=== PATIENT | female | born 1945 | race Hispanic/Latino ===

== ENCOUNTER → 2019-11-29 | Outpatient (CLI) | payer MEDICARE ==
[~2019-11-29] MED LIST: ROPI1TAB13 PO; SITA1TAB2 PO; TRAM50TA4 PO
== END | disposition home or self-care (01) ==
LOC: RAH 07:31
PROVIDERS: ATTEND Orthopaedic Surgery
DX: M19.011 Primary osteoarthritis, right shoulder (principal); M75.102 Unspecified rotator cuff tear or rupture of left shoulder, not specified as traumatic
CPT/HCPCS: 73221

== ENCOUNTER 2020-04-24 17:44 | Inpatient (IN) | payer MEDICARE ==
[~2020-04-24] VITALS: Ht 152.4 cm; Wt 64.5 kg
[2020-04-24 18:36] LABS: BASOPHILS % (AUTO) 0.1 % (0.0-5.0); EOSINOPHILS % (AUTO) 0.3 % (0.0-8.0); HEMATOCRIT 37.3 % (36-48); LYMPHOCYTES % (AUTO) 9.4 % (21.0-51.0); MEAN CORPUSCULAR HEMOGLOBIN 30.7 pg (27.0-33.0); MEAN CORPUSCULAR HGB CONC 33.5 g/dL (32.0-36.0); MEAN CORPUSCULAR VOLUME 91.6 fL (79-99); MONOCYTES % (AUTO) 4.6 % (3.0-13.0); NEUTROPHILS % (AUTO) 85.3 % (40.0-77.0); PLATELET COUNT (AUTO) 314 K/uL (130-400); RED BLOOD CELL COUNT(AUTO) 4.07 MIL/uL (4.00-5.50); RED CELL DISTRIBUTION WIDTH 11.9 % (11.0-15.5); WHITE BLOOD COUNT (AUTO) 7.5 K/uL (4.8-10.8)
[2020-04-24 19:00] LABS: CRP QUANTITATIVE 202.1 mg/L (0.00-9.0)
[2020-04-24] MEDS ORDERED: DEXAMETHASONE SOD PHOSPHATE 10MG/ML 1ML VIAL ONE (19:51)
[2020-04-24] MEDS ORDERED: CEFTRIAXONE 1G VIAL ONE (19:51)
[2020-04-24] MEDS ORDERED: AZITHROMYCIN 250 MG TABLET PO ONE (19:52)
[2020-04-24 19:53] LABS: ABG BASE EXCESS 0.7 mmol/L (-2.0-3.0); ABG HCO3 23.8 mmol/L (21.0-28.0); ABG OXYGEN SATURATION 93.8 % (95.0-99.0); ABG PCO2 34 mmHg (32-45)
[2020-04-24 20:11] LABS: CREATININE 0.5 mg/dL (0.5-1.5); POTASSIUM 5.1 mmol/L (3.5-5.1)
[2020-04-24 20:16] LABS: ALBUMIN 2.6 g/dL (3.5-5.0); BILIRUBIN,TOTAL 0.5 mg/dL (0.2-1.0); TOTAL PROTEIN, SERUM 7.7 g/dL (6.0-8.3)
[2020-04-24] MEDS ORDERED: IOHEXOL 350 MG/ML 100ML INFUS..BTL IV ONE (20:23)
[2020-04-24] MEDS ORDERED: MAG/ALUM/SIMETH 30 ML UDCUP PO PRN (20:45)
[2020-04-24] MEDS ORDERED: GUAIFENESIN-DM 200/20 MG 10 ML PO PRN (20:45)
[2020-04-24] MEDS ORDERED: DIPHENHYDRAMINE HCL 25 MG CAPSULE PO PRN (20:45)
[2020-04-24] MEDS ORDERED: DiphenhydrAMINE HCL 50 MG/ML VIAL IV PRN (20:45)
[2020-04-24] MEDS ORDERED: ONDANSETRON 4MG INJ IV PRN (20:45)
[2020-04-24] MEDS ORDERED: NITROGLYCERIN 0.4 MG SL TAB SL PRN (20:45)
[2020-04-24] MEDS ORDERED: LACTULOSE 20 GM/30 ML UDCUP PO PRN (20:45)
[2020-04-24] MEDS ORDERED: ACETAMINOPHEN 325 MG TAB PO PRN ×2 (20:45)
[2020-04-24 20:49] LABS: HEMOGLOBIN A1C 12.7 % (4.0-6.0)
[2020-04-24] MEDS: ACETYLCYSTEINE 600 MG CAPSULE PO SCH (21:00)
[2020-04-24] MEDS ORDERED: CEFTRIAXONE 1G VIAL IVP SCH (21:00)
[2020-04-24] MEDS ORDERED: ERGOCALCIFEROL (VITAMIN D2) 50,000 UNIT CAPSULE PO ONE (21:00)
[2020-04-24] MEDS: FAMOTIDINE 20MG TAB PO SCH (21:00)
[2020-04-24] MEDS ORDERED: ERGOCALCIFEROL (VITAMIN D2) 50,000 UNIT CAPSULE ONE (22:04)
[2020-04-24] MEDS ORDERED: ASPIRIN 325 MG TABLET ONE (22:05)
[2020-04-24] MEDS ORDERED: FAMOTIDINE 20MG TAB ONE (22:05)
[2020-04-24] MEDS ORDERED: ACETYLCYSTEINE 600 MG CAPSULE ONE (22:05)
[2020-04-24] MEDS ORDERED: 0.9%NACL 50ML 50 ML IV ONE (23:31)
[2020-04-25] MEDS: INSULIN GLARGINE 100 UNITS/ML 10 ML VIAL SQ SCH ×2 (00:45→21:00)
[2020-04-25] MEDS ORDERED: GLUCAGON 1MG KIT 1 MG ML IM PRN (00:45)
[2020-04-25] MEDS ORDERED: DEXTROSE 50%-WATER 50 ML DISP.SYRIN IV PRN (00:45)
[2020-04-25 05:41] LABS: BASOPHILS % (AUTO) 0.2 % (0.0-5.0); HEMATOCRIT 36.5 % (36-48); MEAN CORPUSCULAR HEMOGLOBIN 31.5 pg (27.0-33.0); MEAN CORPUSCULAR HGB CONC 34.5 g/dL (32.0-36.0); MEAN CORPUSCULAR VOLUME 91.3 fL (79-99); MONOCYTES % (AUTO) 0.9 % (3.0-13.0); NEUTROPHILS % (AUTO) 88.7 % (40.0-77.0); PLATELET COUNT (AUTO) 324 K/uL (130-400); WHITE BLOOD COUNT (AUTO) 4.3 K/uL (4.8-10.8)
[2020-04-25] MEDS: INSULIN HUMULIN R 100 UNIT/ML 3ML SQ SCH ×4 (07:30→21:00)
[2020-04-25] MEDS ORDERED: ASCORBIC ACID 500 MG TAB ONE (07:39)
[2020-04-25] MEDS ORDERED: FAMOTIDINE 20MG TAB ONE ×2 (07:39→21:03)
[2020-04-25] MEDS ORDERED: ZINC SULFATE 220 CAPSULE ONE (07:40)
[2020-04-25] MEDS ORDERED: ACETYLCYSTEINE 600 MG CAPSULE ONE ×2 (07:40→21:03)
[2020-04-25] MEDS ORDERED: ENOXAPARIN SODIUM 40 MG/0.4 ML SYRINGE SQ ONE (07:40)
[2020-04-25] MEDS ORDERED: CEFTRIAXONE 1G VIAL ONE ×2 (07:41→21:04)
[2020-04-25] MEDS ORDERED: INSULIN HUMULIN R 100 UNIT/ML 3ML ONE ×4 (07:59→21:04)
[2020-04-25 08:35] LABS: ALBUMIN 2.2 g/dL (3.5-5.0); BILIRUBIN,TOTAL 0.3 mg/dL (0.2-1.0); CREATININE 0.6 mg/dL (0.5-1.5); POTASSIUM 4.3 mmol/L (3.5-5.1)
[2020-04-25 08:43] LABS: CRP QUANTITATIVE 175.8 mg/L (0.00-9.0)
[2020-04-25] MEDS: ASCORBIC ACID 500 MG TAB PO SCH (09:00)
[2020-04-25] MEDS: ZINC SULFATE 220 CAPSULE PO SCH (09:00)
[2020-04-25] MEDS: ACETYLCYSTEINE 600 MG CAPSULE PO SCH ×2 (09:00→21:00)
[2020-04-25] MEDS ORDERED: ENOXAPARIN SODIUM 40 MG/0.4 ML SYRINGE SQ SCH (09:00)
[2020-04-25] MEDS: CEFTRIAXONE 1G VIAL IVP SCH ×2 (09:00→21:00)
[2020-04-25] MEDS: FAMOTIDINE 20MG TAB PO SCH ×2 (09:00→21:00)
[2020-04-25 16:32] LABS: APPEARANCE,URINE Clear (CLEAR); BILIRUBIN,URINE Negative (NEGATIVE); COLOR,URINE Yellow (YELLOW); GLUCOSE, URINE (UA) >=1000 mg/dL (NEGATIVE); KETONES,URINE 15 mg/dL (NEGATIVE); LEUKOCYTE ESTERASE ,URINE Negative (NEGATIVE); NITRATE,URINE Negative (NEGATIVE); OCCULT BLOOD,URINE Negative (NEGATIVE); PH,URINE 6.5 (5.0-8.0); PROTEIN,URINE Negative (NEGATIVE)
[2020-04-25 16:47] LABS: BACTERIA,URINE Rare /HPF (None Seen); RBC,URINE 0-1 /HPF (0-1); SQUAMOUS EPITHELIAL CELL,UR Few /HPF (0-2); WBC,URINE 0-1 /HPF (0-1)
[2020-04-25] MEDS ORDERED: PHARMACY COMMUNICATION***REMDESIVIR ORDER MISC SCH (17:00)
[2020-04-25] MEDS ORDERED: DEXAMETHASONE SOD PHOSPHATE 4 MG/ML 1ML VIAL IVP SCH (18:00)
[2020-04-25] MEDS: DEXAMETHASONE SOD PHOSPHATE 4 MG/ML 1ML VIAL IVP SCH (18:00)
[2020-04-25] MEDS ORDERED: DEXAMETHASONE SOD PHOSPHATE 4 MG/ML 1ML VIAL ONE (18:14)
[2020-04-26 05:30] VITALS: BP 136/72
[2020-04-26 06:30] LABS: BASOPHILS % (AUTO) 0.1 % (0.0-5.0); HEMATOCRIT 33.5 % (36-48); LYMPHOCYTES % (AUTO) 9.4 % (21.0-51.0); MEAN CORPUSCULAR HEMOGLOBIN 30.8 pg (27.0-33.0); MEAN CORPUSCULAR HGB CONC 33.7 g/dL (32.0-36.0); MEAN CORPUSCULAR VOLUME 91.3 fL (79-99); MONOCYTES % (AUTO) 2.4 % (3.0-13.0); NEUTROPHILS % (AUTO) 87.7 % (40.0-77.0); PLATELET COUNT (AUTO) 370 K/uL (130-400); RED BLOOD CELL COUNT(AUTO) 3.67 MIL/uL (4.00-5.50); RED CELL DISTRIBUTION WIDTH 12.2 % (11.0-15.5); WHITE BLOOD COUNT (AUTO) 10.6 K/uL (4.8-10.8)
[2020-04-26] MEDS: INSULIN HUMULIN R 100 UNIT/ML 3ML SQ SCH ×4 (06:40→19:58)
[2020-04-26 06:45] LABS: ALBUMIN 2.3 g/dL (3.5-5.0); BILIRUBIN,TOTAL 0.3 mg/dL (0.2-1.0); CREATININE 0.5 mg/dL (0.5-1.5); CRP QUANTITATIVE 69.6 mg/L (0.00-9.0); POTASSIUM 4.6 mmol/L (3.5-5.1); TOTAL PROTEIN, SERUM 6.6 g/dL (6.0-8.3)
[2020-04-26] MEDS: INSULIN LISPRO 100 UNIT/ML 3ML SQ SCH ×3 (06:49→17:41)
[2020-04-26 08:00] VITALS: BP 125/54
[2020-04-26] MEDS: CEFTRIAXONE 1G VIAL IVP SCH ×2 (08:54→19:42)
[2020-04-26] MEDS: FAMOTIDINE 20MG TAB PO SCH ×2 (08:56→19:41)
[2020-04-26] MEDS: ASCORBIC ACID 500 MG TAB PO SCH (08:56)
[2020-04-26] MEDS: ACETYLCYSTEINE 600 MG CAPSULE PO SCH (08:56)
[2020-04-26] MEDS: ZINC SULFATE 220 CAPSULE PO SCH (08:57)
[2020-04-26] MEDS: ENOXAPARIN SODIUM 40 MG/0.4 ML SYRINGE SQ SCH ×2 (08:57→19:42)
[2020-04-26 12:00] VITALS: BP 155/67
[2020-04-26] MEDS ORDERED: PHARMACY COMMUNICATION MISC SCH (16:30)
[2020-04-26] MEDS ORDERED: COMPOUND IV REFRIGERATED 1 EACH IVSOLN MISC PRN (17:00)
[2020-04-26] MEDS: DEXAMETHASONE SOD PHOSPHATE 4 MG/ML 1ML VIAL IVP SCH (17:45)
[2020-04-26 17:59] VITALS: BP 142/48
[2020-04-26] MEDS ORDERED: REMDESIVIR (EUA) 520 200 MG in 0.9% NACL 250ML 250 ML IV SCH (18:00)
[2020-04-26 19:00] VITALS: BP 122/76
[2020-04-26] MEDS: INSULIN GLARGINE 100 UNITS/ML 10 ML VIAL SQ SCH (19:46)
[2020-04-27] VITALS: BP_SYST 119; BP_SYST 136; BP_DIAS 70; BP_DIAS 76
[2020-04-27 04:00] VITALS: BP 143/71
[2020-04-27] MEDS: REMDESIVIR LABS MISC SCH (06:00)
[2020-04-27 06:01] LABS: BASOPHILS % (AUTO) 0.1 % (0.0-5.0); HEMATOCRIT 33.7 % (36-48); MEAN CORPUSCULAR HEMOGLOBIN 30.1 pg (27.0-33.0); MEAN CORPUSCULAR HGB CONC 32.9 g/dL (32.0-36.0); MEAN CORPUSCULAR VOLUME 91.3 fL (79-99); MONOCYTES % (AUTO) 2.4 % (3.0-13.0); PLATELET COUNT (AUTO) 414 K/uL (130-400); RED BLOOD CELL COUNT(AUTO) 3.69 MIL/uL (4.00-5.50); WHITE BLOOD COUNT (AUTO) 9.5 K/uL (4.8-10.8)
[2020-04-27 06:10] LABS: ALBUMIN 2.3 g/dL (3.5-5.0); BILIRUBIN,TOTAL 0.2 mg/dL (0.2-1.0); CREATININE 0.4 mg/dL (0.5-1.5); POTASSIUM 3.9 mmol/L (3.5-5.1); TOTAL PROTEIN, SERUM 6.6 g/dL (6.0-8.3)
[2020-04-27] MEDS: INSULIN LISPRO 100 UNIT/ML 3ML SQ SCH ×3 (06:32→16:53)
[2020-04-27] MEDS: INSULIN HUMULIN R 100 UNIT/ML 3ML SQ SCH ×4 (06:33→20:41)
[2020-04-27] MEDS: CEFTRIAXONE 1G VIAL IVP SCH ×2 (08:31→20:40)
[2020-04-27] MEDS: ZINC SULFATE 220 CAPSULE PO SCH (08:31)
[2020-04-27] MEDS: FAMOTIDINE 20MG TAB PO SCH ×2 (08:31→20:39)
[2020-04-27] MEDS: ENOXAPARIN SODIUM 40 MG/0.4 ML SYRINGE SQ SCH ×2 (08:31→20:42)
[2020-04-27] MEDS: ASCORBIC ACID 500 MG TAB PO SCH (08:31)
[2020-04-27 09:12] VITALS: BP 137/48
[2020-04-27 12:00] VITALS: BP 133/49
[2020-04-27] MEDS: REMDESIVIR (EUA) 520 100 MG in 0.9% NACL 250ML 250 ML IV SCH (17:06)
[2020-04-27 17:18] VITALS: BP 159/65
[2020-04-27 19:00] VITALS: BP 125/58
[2020-04-27] MEDS: INSULIN GLARGINE 100 UNITS/ML 10 ML VIAL SQ SCH (20:41)
[2020-04-28] VITALS: BP 127/54
[2020-04-28 04:00] VITALS: BP 146/76
[2020-04-28 04:16] LABS: HEMATOCRIT 34.6 % (36-48); LYMPHOCYTES % (AUTO) 27.5 % (21.0-51.0); MEAN CORPUSCULAR HEMOGLOBIN 30.5 pg (27.0-33.0); MEAN CORPUSCULAR HGB CONC 33.2 g/dL (32.0-36.0); MEAN CORPUSCULAR VOLUME 91.8 fL (79-99); MONOCYTES % (AUTO) 8.5 % (3.0-13.0); NEUTROPHILS % (AUTO) 63.6 % (40.0-77.0); PLATELET COUNT (AUTO) 463 K/uL (130-400); RED BLOOD CELL COUNT(AUTO) 3.77 MIL/uL (4.00-5.50); RED CELL DISTRIBUTION WIDTH 12.2 % (11.0-15.5); WHITE BLOOD COUNT (AUTO) 7.8 K/uL (4.8-10.8)
[2020-04-28 04:34] LABS: CREATININE 0.5 mg/dL (0.5-1.5); CRP QUANTITATIVE 22.3 mg/L (0.00-9.0); POTASSIUM 4.8 mmol/L (3.5-5.1)
[2020-04-28] MEDS: REMDESIVIR LABS MISC SCH (06:00)
[2020-04-28] MEDS: INSULIN LISPRO 100 UNIT/ML 3ML SQ SCH ×3 (06:59→17:08)
[2020-04-28] MEDS: INSULIN HUMULIN R 100 UNIT/ML 3ML SQ SCH ×4 (07:06→20:53)
[2020-04-28] MEDS: CEFTRIAXONE 1G VIAL IVP SCH ×2 (08:22→20:51)
[2020-04-28 08:23] VITALS: BP 128/50
[2020-04-28] MEDS: FAMOTIDINE 20MG TAB PO SCH ×2 (08:23→20:50)
[2020-04-28] MEDS: ASCORBIC ACID 500 MG TAB PO SCH (08:23)
[2020-04-28] MEDS: ZINC SULFATE 220 CAPSULE PO SCH (08:23)
[2020-04-28] MEDS: DEXAMETHASONE 4 MG TAB PO SCH (08:23)
[2020-04-28] MEDS: ENOXAPARIN SODIUM 40 MG/0.4 ML SYRINGE SQ SCH ×2 (08:25→20:51)
[2020-04-28 12:32] VITALS: BP 127/65
[2020-04-28] MEDS: REMDESIVIR (EUA) 520 100 MG in 0.9% NACL 250ML 250 ML IV SCH (17:31)
[2020-04-28 18:16] VITALS: BP 115/60
[2020-04-28] MEDS: INSULIN GLARGINE 100 UNITS/ML 10 ML VIAL SQ SCH (20:54)
[2020-04-29] VITALS: BP 133/52
[2020-04-29 04:00] VITALS: BP 114/69
[2020-04-29] MEDS: REMDESIVIR LABS MISC SCH (06:00)
[2020-04-29] MEDS: INSULIN HUMULIN R 100 UNIT/ML 3ML SQ SCH ×4 (06:18→20:55)
[2020-04-29 06:22] LABS: HEMATOCRIT 37.4 % (36-48); MEAN CORPUSCULAR HEMOGLOBIN 30.8 pg (27.0-33.0); MEAN CORPUSCULAR HGB CONC 33.4 g/dL (32.0-36.0); MEAN CORPUSCULAR VOLUME 92.1 fL (79-99); MONOCYTES % (AUTO) 4.4 % (3.0-13.0); PLATELET COUNT (AUTO) 560 K/uL (130-400); RED BLOOD CELL COUNT(AUTO) 4.06 MIL/uL (4.00-5.50); RED CELL DISTRIBUTION WIDTH 12.2 % (11.0-15.5); WHITE BLOOD COUNT (AUTO) 8.7 K/uL (4.8-10.8)
[2020-04-29 06:35] LABS: CREATININE 0.5 mg/dL (0.5-1.5); CRP QUANTITATIVE 15.1 mg/L (0.00-9.0); POTASSIUM 4.4 mmol/L (3.5-5.1)
[2020-04-29] MEDS: INSULIN LISPRO 100 UNIT/ML 3ML SQ SCH ×3 (06:35→16:53)
[2020-04-29 07:30] VITALS: BP 147/70
[2020-04-29] MEDS: FAMOTIDINE 20MG TAB PO SCH ×2 (08:12→20:10)
[2020-04-29] MEDS: ENOXAPARIN SODIUM 40 MG/0.4 ML SYRINGE SQ SCH ×2 (08:12→20:11)
[2020-04-29] MEDS: ASCORBIC ACID 500 MG TAB PO SCH (08:13)
[2020-04-29] MEDS: DEXAMETHASONE 4 MG TAB PO SCH (08:13)
[2020-04-29] MEDS: ZINC SULFATE 220 CAPSULE PO SCH (08:13)
[2020-04-29] MEDS: CEFTRIAXONE 1G VIAL IVP SCH ×2 (08:13→20:10)
[2020-04-29 11:00] VITALS: BP 124/82
[2020-04-29 16:00] VITALS: BP 143/70
[2020-04-29] MEDS: REMDESIVIR (EUA) 520 100 MG in 0.9% NACL 250ML 250 ML IV SCH (17:02)
[2020-04-29 20:33] VITALS: BP 138/60
[2020-04-29] MEDS: INSULIN GLARGINE 100 UNITS/ML 10 ML VIAL SQ SCH (20:55)
[2020-04-30 00:11] VITALS: BP 145/76
[2020-04-30] MEDS: REMDESIVIR LABS MISC SCH (01:08)
[2020-04-30 04:21] VITALS: BP 159/71
[2020-04-30 05:13] LABS: BASOPHILS % (AUTO) 0.1 % (0.0-5.0); LYMPHOCYTES % (AUTO) 17.6 % (21.0-51.0); MEAN CORPUSCULAR HEMOGLOBIN 30.3 pg (27.0-33.0); MEAN CORPUSCULAR HGB CONC 33.5 g/dL (32.0-36.0); MEAN CORPUSCULAR VOLUME 90.4 fL (79-99); MONOCYTES % (AUTO) 6.5 % (3.0-13.0); NEUTROPHILS % (AUTO) 75.2 % (40.0-77.0); PLATELET COUNT (AUTO) 549 K/uL (130-400); RED BLOOD CELL COUNT(AUTO) 3.76 MIL/uL (4.00-5.50); RED CELL DISTRIBUTION WIDTH 12.1 % (11.0-15.5); WHITE BLOOD COUNT (AUTO) 8.8 K/uL (4.8-10.8)
[2020-04-30] MEDS: INSULIN HUMULIN R 100 UNIT/ML 3ML SQ SCH ×3 (05:41→16:30)
[2020-04-30] MEDS: INSULIN LISPRO 100 UNIT/ML 3ML SQ SCH ×3 (05:49→17:44)
[2020-04-30 05:52] LABS: ALBUMIN 2.4 g/dL (3.5-5.0); BILIRUBIN,DIRECT 0.1 mg/dL (0.0-0.3); BILIRUBIN,TOTAL 0.2 mg/dL (0.2-1.0); CREATININE 0.5 mg/dL (0.5-1.5); POTASSIUM 3.6 mmol/L (3.5-5.1); TOTAL PROTEIN, SERUM 6.1 g/dL (6.0-8.3)
[2020-04-30] MEDS: ZINC SULFATE 220 CAPSULE PO SCH (10:04)
[2020-04-30] MEDS: FAMOTIDINE 20MG TAB PO SCH (10:04)
[2020-04-30] MEDS: ASCORBIC ACID 500 MG TAB PO SCH (10:04)
[2020-04-30] MEDS: CEFTRIAXONE 1G VIAL IVP SCH (10:05)
[2020-04-30] MEDS: ENOXAPARIN SODIUM 40 MG/0.4 ML SYRINGE SQ SCH (10:05)
[2020-04-30] MEDS: DEXAMETHASONE 4 MG TAB PO SCH (10:05)
[2020-04-30 11:29] VITALS: BP 138/64
[2020-04-30] MEDS ORDERED: APIX2.5T PO (15:52)
[2020-04-30] MEDS ORDERED: CEFD300C3 PO (15:52)
[2020-04-30] MEDS ORDERED: DEXA6TAB7 PO (15:52)
[2020-04-30] MEDS ORDERED: DOXY100C5 PO (15:52)
[2020-04-30] MEDS: REMDESIVIR (EUA) 520 100 MG in 0.9% NACL 250ML 250 ML IV SCH (17:34)
[2020-04-30 19:26] VITALS: BP 160/48
[2020-04-30 20:21] VITALS: BP 148/67
== END 2020-04-30 20:15 | disposition home or self-care (01) | DRG 177 ==
LOC: EDH 17:44 → EDHIP 20:42 → OBSVTOIN 20:42 → 4AH 04-26 05:17
PROVIDERS: ADMIT Family Medicine; ATTEND Family Medicine
PROC: XW13325 Transfusion of Convalescent Plasma (Nonautologous) into Peripheral Vein, Percutaneous Approach, New Technology Group 5 (ICD-10-PCS; principal; 2020-04-24)
PROC: XW033E5 Introduction of Remdesivir Anti-infective into Peripheral Vein, Percutaneous Approach, New Technology Group 5 (ICD-10-PCS; 2020-04-26)
DX: U07.1 COVID-19 (principal); J12.82 Pneumonia due to coronavirus disease 2019; J15.9 Unspecified bacterial pneumonia; E87.1 Hypo-osmolality and hyponatremia; D72.810 Lymphocytopenia; D72.819 Decreased white blood cell count, unspecified; E11.65 Type 2 diabetes mellitus with hyperglycemia; I10 Essential (primary) hypertension; Z80.6 Family history of leukemia; Z82.0 Family history of epilepsy and other diseases of the nervous system; Z82.49 Family history of ischemic heart disease and other diseases of the circulatory system; Z83.3 Family history of diabetes mellitus
CPT/HCPCS: 36415; 36600; 71045; 71275; 80048; 80053; 80076; 81001; 82728; 82803; 82948; 83036; 83605; 83615; 84145; 84484; 85025; 85378; 86140; 86900; 86901; 86927; 87040; 87426; 93005; 94760; 99291; G0378; J0696; J1100; J1650; J1815; J7050; J8540; Q0163; Q9967; U0003

== ENCOUNTER 2021-03-23 15:29 | Emergency (ER) | payer MEDICARE, OTHER ==
[~2021-03-23] VITALS: Ht 152.4 cm; Wt 59.0 kg
[~2021-03-23 15:29] MED LIST changes: +APIX2.5T PO; +CEFD300C3 PO; +DEXA6TAB7 PO; +DOXY100C5 PO
[2021-03-23] MEDS ORDERED: DOXY-336 PO (17:46)
[2021-03-23 17:57] VITALS: BP 149/62
[2021-03-23] MEDS ORDERED: IBUPROFEN 600 MG TABLET PO SCH (18:00)
[2021-03-23] MEDS ORDERED: DOXYCYCLINE HYCLATE 100 MG TABLET PO SCH (18:00)
== END 2021-03-23 18:15 | disposition home or self-care (01) ==
LOC: EDH 15:29
DX: S43.402A Unspecified sprain of left shoulder joint, initial encounter (principal); S60.562A Insect bite (nonvenomous) of left hand, initial encounter; S40.862A Insect bite (nonvenomous) of left upper arm, initial encounter; L08.9 Local infection of the skin and subcutaneous tissue, unspecified; E11.9 Type 2 diabetes mellitus without complications; Z79.01 Long term (current) use of anticoagulants; Z79.1 Long term (current) use of non-steroidal anti-inflammatories (NSAID); Z79.52 Long term (current) use of systemic steroids; Z79.84 Long term (current) use of oral hypoglycemic drugs; Z79.899 Other long term (current) drug therapy; W57.XXXA Bitten or stung by nonvenomous insect and other nonvenomous arthropods, initial encounter; W01.0XXA Fall on same level from slipping, tripping and stumbling without subsequent striking against object, initial encounter; Y93.89 Activity, other specified; Y92.89 Other specified places as the place of occurrence of the external cause; Y99.8 Other external cause status
CPT/HCPCS: 73030; 73130

== ENCOUNTER → 2023-10-09 | Outpatient (CLI) | payer OTHER ==
[~2023-10-09] MED LIST changes: +DOXY100C61 PO; -ROPI1TAB13 PO; +ROPI1TAB46 PO
== END | disposition home or self-care (01) ==
LOC: SHCH 12:59
PROVIDERS: ATTEND Student in an Organized Health Care Education/Training Program
DX: R01.1 Cardiac murmur, unspecified (principal)
CPT/HCPCS: 93306

== ENCOUNTER 2023-11-11 07:44 | Observation (INO) | payer OTHER ==
[2023-11-08 12:14] LABS: BASOPHILS # (AUTO) 0.04 K/uL (0.00-0.20); BASOPHILS % (AUTO) 0.7 % (0.0-5.0); EOSINOPHILS # (AUTO) 0.13 K/uL (0.00-0.70); EOSINOPHILS % (AUTO) 2.2 % (0.0-8.0); HEMATOCRIT 33.5 % (36-48); IMMATURE GRANULOCYTE ABSOLUTE 0.02 K/uL (0-1); LYMPHOCYTES # (AUTO) 1.2 K/uL (1.0-4.8); LYMPHOCYTES % (AUTO) 20.7 % (21.0-51.0); MEAN CORPUSCULAR HEMOGLOBIN 32.9 pg (27.0-33.0); MEAN CORPUSCULAR HGB CONC 33.1 g/dL (32.0-36.0); MEAN CORPUSCULAR VOLUME 99.4 fL (79-99); MONOCYTES # (AUTO) 0.4 K/uL (0.1-1.0); MONOCYTES % (AUTO) 6.9 % (3.0-13.0); NEUTROPHILS # (AUTO) 4.1 K/uL (1.8-7.7); NEUTROPHILS % (AUTO) 69.2 % (40.0-77.0); PLATELET COUNT (AUTO) 218 K/uL (130-400); RED BLOOD CELL COUNT(AUTO) 3.37 MIL/uL (4.00-5.50); RED CELL DISTRIBUTION WIDTH 12.2 % (11.0-15.5)
[2023-11-08 12:26] LABS: INR 0.98 (0.85-1.15); PROTHROMBIN TIME 10.6 SEC (9.6-11.6)
[2023-11-08 12:27] LABS: PARTIAL THROMBOPLASTIN TIME 25.3 SEC (26.3-35.5)
[2023-11-08 12:28] LABS: CARBON DIOXIDE 33 mmol/L (21-32); CHLORIDE 104 mmol/L (101-111); CREATININE 0.6 mg/dL (0.5-1.0); GLOMERULAR FILTR. RATE CALC 93 mL/min (>90); GLUCOSE,RANDOM 255 mg/dL (70-105); POTASSIUM 4.5 mmol/L (3.5-5.1); SODIUM SERUM 141 mmol/L (136-145); UREA NITROGEN, BLOOD 10 mg/dL (7-18)
[2023-11-08 12:43] LABS: ADD UA MICROSCOPIC YES; APPEARANCE,URINE CLEAR (CLEAR); BILIRUBIN,URINE NEGATIVE (NEGATIVE); COLOR,URINE COLORLESS (YELLOW); GLUCOSE, URINE (UA) NEGATIVE (NEGATIVE); KETONES,URINE NEGATIVE (NEGATIVE); LEUKOCYTE ESTERASE ,URINE 25 Leu/uL (NEGATIVE); MUCUS,URINE RARE LPF (None Seen); NITRATE,URINE NEGATIVE (NEGATIVE); OCCULT BLOOD,URINE NEGATIVE (NEGATIVE); PROTEIN,URINE NEGATIVE (NEGATIVE); RBC,URINE 0-1 /HPF (0-1); SQUAMOUS EPITHELIAL CELL,UR RARE /HPF (0-2); UROBILINOGEN,URINE 0.2 mg/dL (0.2-1.0); WBC,URINE 0-1 /HPF (0-1)
[2023-11-08 13:04] VITALS: BP 193/67; PULSE 64; RESP 18; TEMP 97.8
[2023-11-08 13:34] LABS: ERYTHROCYTE SEDIMENTATION RATE 30 MM/HR (0-30)
[2023-11-11] VITALS (27 sets, daily range): BP systolic 125–174; BP diastolic 53–78; PULSE 64–96; RESP 16–19; TEMP 97.3–98.6; O2SAT 98–99
[~2023-11-11] VITALS: Ht 152.4 cm; Wt 69.2 kg
[~2023-11-11 07:44] MED LIST changes: -APIX2.5T PO; +ATOR10TA69 PO; -CEFD300C3 PO; +CELE-125 PO; -DEXA6TAB7 PO; -DOXY100C5 PO; -DOXY100C61 PO; +FERS325 PO; +GABA300C PO; +GLIP5TAB15 PO; +HYDR-4060 PO; +HYDR200T75 PO; +INSU100V37 SQ; +LISI5TAB21 PO; +METF-446 PO; -SITA1TAB2 PO; -TRAM50TA4 PO; +TYLENOL ARTHRITIS PO
[2023-11-11] MEDS: ceFAZolin SODIUM 2 GM VIAL ONE (08:27)
[2023-11-11] MEDS: 0.9%NACL 1000ML 1,000 ML IV ONE (08:27)
[2023-11-11] MEDS ORDERED: LIDOCAINE PF 100MG/5ML (2%) SYRINGE 5ML ONE ×2 (08:34→08:38)
[2023-11-11] MEDS ORDERED: SUCCINYLCHOLINE CHLORIDE 20 MG/ML 10 ML VIAL ONE (08:34)
[2023-11-11] MEDS ORDERED: proPOFol 10 MG/ML 20ML VIAL IV ONE (08:35)
[2023-11-11] MEDS ORDERED: GLYCOPYRROLATE 0.2 MG/ML 5 ML VIAL ONE (08:35)
[2023-11-11] MEDS ORDERED: FENTanyl CITRate PF 50 MCG/1 ML 2ML VIAL ONE ×3 (08:36→11:04)
[2023-11-11] MEDS ORDERED: rocuRONium bROMide 10MG/1ML 5ML VL ONE ×2 (08:36→09:40)
[2023-11-11] MEDS ORDERED: NEOSTIGMINE METHYLSULFATE 1MG/ML IV ONE (08:36)
[2023-11-11] MEDS ORDERED: ROPivacaine 0.5% 5MG/ML 30ML ONE (08:42)
[2023-11-11] MEDS: TRANEXAMIC ACID 1000MG/10ML ONE (09:10)
[2023-11-11] MEDS: morPHINE PF 100MG/10ML AMP IV ONE (09:32)
[2023-11-11] MEDS: VANCOMYCIN 1G/250ML KIT 250 ML IV ONE (09:32)
[2023-11-11] MEDS ORDERED: KCL 20 MEQ ERTAB PO PRN (11:00)
[2023-11-11] MEDS ORDERED: ONDANSETRON 4MG INJ IVP PRN (11:00)
[2023-11-11] MEDS ORDERED: DiphenhydrAMINE HCL 50 MG/ML VIAL IVP PRN (11:00)
[2023-11-11] MEDS ORDERED: POTASSIUM CHLORIDE 20MEQ/100ML 100 ML IV PRN (11:00)
[2023-11-11] MEDS ORDERED: POTASSIUM CHLORIDE 10% ELIXIR 20 MEQ/15 ML UDCUP PO PRN (11:00)
[2023-11-11] MEDS ORDERED: TEMAZEPAM 15 MG CAPSULE PO PRN (11:00)
[2023-11-11] MEDS ORDERED: CALCIUM CARB 500MG PO PRN (11:00)
[2023-11-11] MEDS ORDERED: ONDANSETRON 4MG INJ ONE (11:41)
[2023-11-11] MEDS ORDERED: dexaMETHasone SOD PHOSPHATE 10MG/ML 1ML VIAL ONE (11:42)
[2023-11-11] MEDS: ONDANSETRON 4MG INJ ONE (12:03)
[2023-11-11] MEDS: MEPERIDINE-PF 25 MG/ML SYG ONE (12:03)
[2023-11-11] MEDS: ketOROlac 15MG/ML VIAL (15MG/ML) IV PRN (13:03)
[2023-11-11] MEDS: GABAPENTIN 300 MG CAPSULE PO SCH (15:14)
[2023-11-11] MEDS: ropiNIRole HCL 1 MG TABLET PO SCH (15:14)
[2023-11-11] MEDS: HYDROcodone/APAP 5/325 1 TAB TABLET PO PRN (15:15)
[2023-11-11] MEDS: ceFAZolin SODIUM 2 GM VIAL IVPB SCH (16:28)
[2023-11-11] MEDS: 0.9%NACL 1000ML 1,000 ML IV SCH (16:28)
[2023-11-11] MEDS: INSULIN humuLIN R 100 UNIT/ML 3ML SQ SCH (16:34)
[2023-11-11] MEDS: CeleCOXib 200 MG CAP PO SCH (19:56)
[2023-11-11] MEDS: glipiZIDE 5MG TABLET PO SCH (19:56)
[2023-11-11] MEDS: metFORmin HCL 500 MG TABLET PO SCH (19:56)
[2023-11-11] MEDS: ASPIRIN 81 MG EC TAB PO SCH (19:56)
[2023-11-11] MEDS: FAMOTIDINE 20MG TAB PO SCH (19:57)
[2023-11-11] MEDS ORDERED: CeleCOXib 200 MG CAP PO SCH (21:00)
[2023-11-12] VITALS (8 sets, daily range): BP systolic 113–143; BP diastolic 57–83; PULSE 71–93; RESP 17–20; TEMP 97.6–99.1; O2SAT 94–96
[2023-11-12 04:37] LABS: HEMATOCRIT 27.5 % (36-48); MEAN CORPUSCULAR HEMOGLOBIN 32.5 pg (27.0-33.0); MEAN CORPUSCULAR HGB CONC 31.6 g/dL (32.0-36.0); MEAN CORPUSCULAR VOLUME 102.6 fL (79-99); RED BLOOD CELL COUNT(AUTO) 2.68 MIL/uL (4.00-5.50); RED CELL DISTRIBUTION WIDTH 12.6 % (11.0-15.5); WHITE BLOOD COUNT (AUTO) 9.1 K/uL (4.8-10.8)
[2023-11-12 04:47] LABS: CREATININE 0.5 mg/dL (0.5-1.0)
[2023-11-12] MEDS: FERROUS FUMARATE 324 MG TABLET PO PRN (04:51)
[2023-11-12] MEDS: CYCLOBENZAPRINE HCL 10 MG TABLET PO PRN (06:08)
[2023-11-12] MEDS: LISINOPRIL 5 MG TABLET PO SCH (09:14)
[2023-11-12] MEDS: hydroXYCHLOroquine SULFate 200 MG TAB PO SCH (09:14)
[2023-11-12] MEDS: polyETHYLene GLYCol 3350 17 GM POWD.PACK PO SCH (09:14)
[2023-11-12] MEDS: hydroMORPHone 1 MG INJ IVP PRN (13:30)
[2023-11-12] MEDS ORDERED: AEC81 PO (17:10)
[2023-11-12] MEDS ORDERED: HYDR-4060 PO (17:10)
[2023-11-14] MEDS ORDERED: BisaCODYL 10 MG SUPP.RECT RC PRN (11:00)
== END 2023-11-12 18:17 ==
LOC: DAH 07:44 → DAHIP 07:45 → DAH 07:45 → 4AH 12:50
PROVIDERS: ADMIT Orthopaedic Surgery; ATTEND Orthopaedic Surgery
DX: M17.12 Unilateral primary osteoarthritis, left knee (principal); Z79.899 Other long term (current) drug therapy; Z98.890 Other specified postprocedural states
CPT/HCPCS: 80048 ×2; 85025; 85610; 85730; 85651; 87086; 86140; 81001; 36415 ×2; 93005; 87641; 27447; 64447; 96365; 96375 ×2; 82948 ×7; 88311; 88305; 97161; 97116 ×2; 97530 ×2; 96376; 96366; 85027; J1815; G0378 ×29; A4223 ×2; A6260; A4663; J7120; J3010 ×3; J3490 ×4; J1100; J0330; J7030; J2001 ×2; J2704; J2274; J2405 ×2; J2710; J3370; J2175; J2795; J1885 ×2; J0690 ×3; A9272; A4649 ×3; A4930 ×2; C1713; C1776; A5120; A4215; A4222; A4221; A4216; J1170